=== PATIENT | female | born 1990 | race Hispanic/Latino ===

== ENCOUNTER 2019-03-28 01:16 | Emergency (ER) | payer OTHER ==
[~2019-03-28] VITALS: Ht 162.6 cm; Wt 97.5 kg
[2019-03-28 02:03] LABS: BASOPHILS % 0.3 % (0.0-1.0); EOSINOPHILS # (AUTO) 0.3 (0.0-0.4); EOSINOPHILS % 3.2 % (0.0-6.0); HEMATOCRIT 34.1 % (34.2-44.1); LYMPHOCYTES # (AUTO) 1.5 (1.0-3.2); LYMPHOCYTES % 19.7 % (18.0-39.1); MEAN CORPUSCULAR HEMOGLOBIN 25.9 pg (28-32); MEAN CORPUSCULAR HGB CONC 32.3 g/dL (31-35); MEAN CORPUSCULAR VOLUME 80.2 fL (81-99); MONOCYTES # (AUTO) 0.6 (0.2-0.8); MONOCYTES % 7.8 % (4.4-11.3); NEUTROPHILS # (AUTO) 5.4 (2.1-6.9); NEUTROPHILS % 68.7 % (38.7-80.0); PLATELET COUNT 226 x10e3/uL (140-360); RED BLOOD COUNT 4.25 x10e6/uL (3.6-5.1); RED CELL DISTRIBUTION WIDTH 16.9 % (11.7-14.4)
[2019-03-28 02:17] LABS: BILIRUBIN,URINE NEGATIVE (NEGATIVE); CLARITY,URINE CLOUDY (CLEAR); COLOR,URINE YELLOW (YELLOW); KETONES,URINE NEGATIVE (NEGATIVE); LEUKOCYTE ESTERASE ,URINE NEGATIVE (NEGATIVE); NITRITE,URINE NEGATIVE (NEGATIVE); PROTEIN,URINE DIPSTICK NEGATIVE (NEGATIVE); URINE UROBILINOGEN 0.2 mg/dL (0.2 - 1)
[2019-03-28 02:34] LABS: BACTERIA,URINE FEW /HPF; EPITHELIAL CELLS,URINE FEW /LPF; RBC,URINE >50 /HPF (0-5)
--- NOTE | 2019-03-28 05:15 | Diagnostic Imaging Report ---
EXAM: First Trimester Obstetric Pelvic Ultrasound INDICATION: Vaginal bleeding, cramping COMPARISON: None TECHNIQUE: Grayscale transverse and sagittal transabdominal and transvaginal images were obtained of the pelvis. Transvaginal imaging was medically necessary to better evaluate the endometrium, adnexa, and fetus. CLINICAL HISTORY: 28 year old Last menstrual period: Unknown Beta-hCG [id number] FINDINGS: Uterus: Orientation: Normal Size: 1.2 x 6.2 x 7 cm, enlarged Mass: None Cervix: Normal Gestational Sac: Location: Intrauterine Average sac diameter: 3.9 cm Estimated sonographic GA: 9 weeks 4 days Appearance: Normal in contour Subchorionic hemorrhage: None Yolk sac: Normal Embryo/Fetus: Baker rump length: 1.8 cm Estimated sonographic GA: 8 weeks 3 days Cardiac activity: 144 bpm Right ovary Size: 3.1 x 1.9 x 1.7 cm Mass/Cyst: None Left ovary Size: 3.6 x 2.7 x 3.1 cm Mass/Cyst: 2.3 cm corpus luteal cyst Cul-de-sac: No free fluid IMPRESSION: 1. Viable intrauterine : Routine followup. 2. Estimated sonographic gestational age: 8 weeks 3 days CLASSIFICATION Viable: can potentially result in a liveborn baby Visualized embryo with FHT Nonviable: Findings diagnostic of failure * Ectopic * CRL >= 7 mm and no FHT * MSD >= 25 mm and no embryo * No FHT >= 2 weeks after US showed GS w/o YS * No FHT >= 11 days after US showed GS w/ YS Intrauterine of uncertain viability: Intrauterine GS with no FHT and no definite findings of failure of unknown location: Positive urine or serum test and no IUP or ectopic on US Diagnostic Criteria for Nonviable Early in the First Trimester N Engl J Med 2013;369:1443-51. DOI: [id number] Signed by: Bryan Tejada DO on 03/28/2019 5:12 AM
== END 2019-03-28 05:30 | disposition home or self-care (01) ==
LOC: ER 01:16
DX: O20.9 Hemorrhage in early pregnancy, unspecified (principal); Z3A.08 8 weeks gestation of pregnancy; O21.0 Mild hyperemesis gravidarum
CPT/HCPCS: 36415; 76817; 81001; 84702; 85025; 99283

== ENCOUNTER 2021-06-05 15:37 | Emergency (ER) | payer OTHER ==
[~2021-06-05] VITALS: Ht 162.6 cm; Wt 97.5 kg
[2021-06-05] MEDS ORDERED: IBUPROFEN 600 MG TAB PO STA (15:41)
[2021-06-05] MEDS ORDERED: IBUPROFEN600 MG PO (17:30)
[2021-06-05] MEDS ORDERED: METHOCARBAMOL750 MG PO (19:32)
[2021-06-05 19:56] VITALS: BP 122/61
== END 2021-06-05 19:58 | disposition home or self-care (01) ==
LOC: ER 15:44
DX: S00.83XA Contusion of other part of head, initial encounter (principal); S50.12XA Contusion of left forearm, initial encounter; S50.11XA Contusion of right forearm, initial encounter; M54.50 Low back pain, unspecified; V43.52XA Car driver injured in collision with other type car in traffic accident, initial encounter; Y92.488 Other paved roadways as the place of occurrence of the external cause
CPT/HCPCS: 70486; 72100; 72131; 81025; 99283